=== PATIENT | male | born 1985 | race Caucasian/White ===

== ENCOUNTER 2021-06-18 12:19 | Emergency (ER) | payer BC, SELFPAY ==
[2021-06-18 12:41] VITALS: BP 145/86; PULSE 120; RESP 20; TEMP 36.9; O2SAT 99
--- NOTE | 2021-06-18 13:09 | ED.BACK ---
HPI - Back Pain/Injury General Chief Complaint: Abdominal Pain Stated Complaint: Middle Back pain,Abdominal Pain Time Seen by Provider: 06/18/21 13:09 Source: patient Mode of arrival: ambulatory Limitations: no limitations History of Present Illness HPI Narrative: Ever Flores is a 36 yo male with a PMH of high cholesterol who comes to [facility] with 1 week history of mid back pain that radiates to the abdomen that seems to be worsening, he has no nausea vomiting but states that he cannot move or sit up without assistance describes abdominal pain which is more epigastric bilateral as 4 out of 10 back pain is 9 out of 10. Is tachycardic and somewhat diaphoretic Related Data Allergies Allergy/AdvReac Type Severity Reaction Status Date / Time No Known Allergies Allergy Mild Verified 06/18/21 13:16 Review of Systems Review of Systems: CONSTITUTIONAL: Denies fever, chills, sweats. EYES: Denies visual changes, redness, discharge. ENT: Denies rhinorrhea, congestion, sore throat, otalgia. CARDIOVASCULAR: Denies chest pain, palpitations, edema. RESPIRATORY: Denies dyspnea, wheezing, cough GASTROINTESTINAL: Denies abdominal pain, nausea, vomiting, diarrhea. GENITOURINARY: Denies dysuria, hematuria, abnormal discharge SKIN: Denies rash or itching. NEUROLOGIC: Denies numbness, or focal weakness. PSYCHIATRIC: Denies anxiety or depression. Bilateral abdominal pain that is 4 of 10 and back pain is 9 out of 10 in his mid thoracic PMFSH Past Medical History Medical History Mixed hyperlipidemia Surgical History Surgical History H/O removal of cyst (~2004) History of cholecystectomy (~2013) Family History Family History Grandparent Diabetes mellitus Father Family history of sleep apnea Other No family history of malignant neoplasm Social History Social History Alcohol intake: current Comments At time of signature, I agree with nursing past medical, surgical, social and family history. There is no relevant family history pertinent to the presenting complaint. Exam Narrative: GENERAL: This is a well-nourished, well-developed patient, in moderate distress. Mild diaphoresis HEAD: normocephalic, atraumatic. EYES: Sclera clear/white. Vision is grossly intact. EARS: External ears normal, auditory canals clear and without drainage, TMs normal without perforation. Hearing grossly intact. NOSE: External nose normal without nasal discharge, nares without redness, no rhinorrhea. THROAT: Mucous membranes moist, NECK: Neck supple, non-tender CARDIOVASCULAR: Tachycardic r rate and rhythm without murmurs, gallops, or rubs. RESPIRATORY: Clear to auscultation. Breath sounds equal bilaterally. No wheezes, rales, or rhonchi. GASTROINTESTINAL: Abdomen soft, -tender, SKIN: warm, intact with no suspicious lesions or rash, good texture and turgor. NEURO: awake, alert, and oriented to person, place and time. There were no obvious focal neurologic abnormalities. Steady gait EXTREMITIES: Normal range of motion. BACK: Nontender without deformity Course Course Emergency Course: Patient comes to with complaints of abdominal and back pain for the last week that is not improving his back pain is 9 of 10 and he is tachycardic Discussion and decision he needs blood work sent to [facility] for further evaluation Vital Signs Vital signs: Vital Signs Temperature 98.5 F 06/18/21 12:41 Pulse Rate 120 H 06/18/21 12:41 Respiratory Rate 20 06/18/21 12:41 Blood Pressure 145/86 H 06/18/21 12:41 Pulse Oximetry 99 06/18/21 12:41 Temperature 98.5 F 06/18/21 12:41 Pulse Rate 120 H 06/18/21 12:41 Respiratory Rate 20 06/18/21 12:41 Blood Pressure 145/86 H 06/18/21 12:41 Pulse Oximetry 99 06/18/21 12:41
== END 2021-06-18 13:26 | disposition short-term general hospital (02) ==
PROVIDERS: Emergency Provider Nurse Practitioner; PCP Family Medicine
DX: M54.6 Pain in thoracic spine (principal); E78.2 Mixed hyperlipidemia
CPT/HCPCS: 99211; G0463

== ENCOUNTER 2021-06-18 13:50 | Emergency (ER) | payer BC, SELFPAY ==
--- NOTE | ~2021-06-18 | CT_ITS ---
EXAMINATION: CT abdomen pelvis w con DATE: 06/18/2021 15:59 INDICATION: Abdominal pain. Left flank pain. TECHNIQUE: Computed tomography (CT) of the abdomen and pelvis was performed with 100 mL Omnipaque-350 intravenous contrast. Automated exposure control and iterative reconstruction technique were employe d. The dose-length product was 1420.69 mGy-cm. COMPARISON: None FINDINGS: Minimal dependent atelectasis in the bilateral lower lobes. Heart size is normal. No pericardial or p leural effusion. Small sliding-type hiatal hernia. Status post cholecystectomy. Liver, spleen, pancre as, bilateral adrenal glands and kidneys are normal. Bowels including the appendix are normal. Bladde r is normal. No free intraperitoneal gas or fluid. No pathologically enlarged abdominal or pelvic lym phadenopathy. Mild thoracolumbar spondylosis. IMPRESSION: 1. No acute intra-abdominal/pelvic process. Reviewed, dictated and finalized at location A.
--- NOTE | ~2021-06-18 | CT_ITS ---
EXAMINATION: CT thoracic lumbar wo con DATE: 06/18/2021 16:00 INDICATION: Left flank and low back pain TECHNIQUE: High resolution computed tomography (CT) of the thoracic and lumbar spine was performed wi thout intravenous contrast. Additional sagittal and coronal reconstructions were performed. Automated exposure control and iterative reconstruction technique were employed. The dose-length product was 1 420.69 mGy-cm. COMPARISON: None FINDINGS: Normal alignment of the thoracic and lumbar spine. Minimal likely physiologic anterior wedging at L1 and L2. Remaining thoracic and lumbar vertebral body heights are normal. There are few scattered smal l Schmorl's nodes. No fracture. Multilevel mild disc height loss throughout the thoracic spine and at L1-L2 with mild lower thoracic predominant degenerative endplate changes. There is a moderate-sized central disc extrusion at T7-T8 with disc material extending minimally cephalad and caudal to the lev el of the endplates and resulting in mild central canal stenosis. Multilevel mild disc bulges from L1 -L2 through L5-S1 result in only minimal central canal stenosis. Multilevel mild facet osteoarthritis throughout the thoracic and lumbar spine. No significant neural foraminal stenosis. Paravertebral so ft tissues are unremarkable. Groundglass opacities in the lungs related to expiratory phase of imagin g. IMPRESSION: 1. Mild thoracic and lumbar spondylosis is most notable for a small central disc extrusion at T7-T8 r esulting in mild central canal stenosis at this level. Reviewed, dictated and finalized at location A. IMPRESSION: 1. Mild thoracic and lumbar spondylosis is most notable for a small central dis c extrusion at T7-T8 resulting in mild central canal stenosis at this level.
[2021-06-18 13:53] VITALS: BP 164/98; PULSE 125; RESP 16; TEMP 36.2; O2SAT 99
[2021-06-18 14:40] LABS: Basophils Absolute Auto 0.1 K/mm3 (0.0-0.1); Basophils Percent Auto 0.6 % (0.2-1.2); Eosinophils Absolute Auto 0.2 K/mm3 (0-0.3); Eosinophils Percent Auto 1.7 % (0-4.4); Hematocrit 44.8 % (42.0-52.0); Hemoglobin 15.4 g/dL (14.0-18.0); Immature Granulocyte Absolute 0.04 K/mm3 (0.00-0.031); Immature Granulocyte Percent A 0.4 % (0-0.5); Lymphocytes Absolute Auto 3.18 K/mm3 (0.9-3.2); Mean Corpuscular HGB Conc 34.4 g/dl (32-36); Mean Corpuscular Hemoglobin 30.4 pg (26-34); Mean Corpuscular Volume 88.4 fl (80-100); Mean Platelet Volume 10.5 fl (7.4-10.4); Monocytes Absolute Auto 0.9 K/mm3 (0.1-0.6); Monocytes Percent Auto 8.2 % (2.6-8.5); Neutrophils Absolute Auto 6.3 K/mm3 (1.3-6.7); Neutrophils Percent Auto 59.1 % (45.5-73.1); Platelet Count Result 295 k/mm3 (150-375); Red Blood Count 5.07 M/mm3 (4.6-6.20); Red Cell Distribution Width 13.1 % (11.5-14.5); White Blood Count 10.6 K/mm3 (4.5-10.0)
[2021-06-18 14:43] LABS: Add Urine Microscopic? YES; Appearance Urine Cloudy (Clear); Bacteria Urine Trace /hpf; Bilirubin Urine Negative (Negative); Blood Urine Negative (Negative); Color Urine Yellow (Yellow); Glucose Urine UA Negative (Negative); Ketones Urine Negative (Negative); Leukocyte Esterase Ur Negative LEU/UL (Negative); Mucus Urine Few /lpf; Nitrate Urine Negative (Negative); Protein Urine 2+ mg/dL (Negative); RBC Urine 0-2 /hpf (0-2); Urobilinogen Urine Negative mg/dL (<2.0); WBC Urine 0-3 /hpf
--- NOTE | 2021-06-18 14:48 | ED.BACK ---
HPI - Back Pain/Injury General Chief Complaint: Back Pain/Injury Stated Complaint: back pain Time Seen by Provider: 06/18/21 14:47 Source: patient Mode of arrival: ambulatory Limitations: no limitations History of Present Illness HPI Narrative: Patient is a 36 yo male presenting with atraumatic left sided back pain. Pain is located in the mid back. Pain is moderate to severe in nature. He has taken ibuprofen with some improvement in his pain. Patient has taken Tylenol today as well as topical aleve and icy hot. Pt also reports a dull abdominal pain that feels as if it is wrapped around his upper abdomen. He denies diarrhea, nausea, vomiting or constipation. No saddle anesthesia. No urinary incontinence. He has been ambulatory. He denies any injury. No heavy bending or lifting. Related Data Allergies Allergy/AdvReac Type Severity Reaction Status Date / Time No Known Allergies Allergy Mild Verified 06/18/21 14:40 Review of Systems Review of Systems: CONSTITUTIONAL: Denies fever, chills, or sweats. EYES: Denies visual changes, redness, or discharge. ENT: Denies rhinorrhea, congestion, sore throat, or otalgia. CARDIOVASCULAR: Denies chest pain, palpitations, or edema. RESPIRATORY: Denies cough or dyspnea. GASTROINTESTINAL: Frontal abdominal pain, mid back pain, denies diarrhea or constipation GENITOURINARY: Denies dysuria or hematuria. SKIN: Denies rash or itching. MUSCULOSKELETAL: Reports back pain of the mid back denies other joint pain, or myalgia. NEUROLOGIC: Denies headache, numbness, or weakness. [facility] Past Medical History Medical History Mixed hyperlipidemia Surgical History Surgical History H/O removal of cyst (~2004) History of cholecystectomy (~2013) Family History Family History Grandparent Diabetes mellitus Father Family history of sleep apnea Other No family history of malignant neoplasm Social History Social History Alcohol intake: current Exam Narrative: GENERAL: Awake, alert, conversant HEAD: Normocephalic, atraumatic. EYES: PERRLA and EOMI. ENT: Nares clear, no rhinorrhea or epistaxis. Mucous membranes moist. NECK: Supple. CHEST: No respiratory distress, breathing even and non labored HEART: Regular rate, sinus rhythm Thorax: No midline thoracic or lumbar tenderness, tender to paraspinal muscles left thoracic spine ABDOMEN:Non distended, non tender EXTREMITIES: Normal range of motion. No edema. SKIN: Warm, dry, no rash. NEURO:No focal deficits. Alert and oriented x3 Course Vital Signs Vital signs: Vital Signs Temperature 36.2 C L 06/18/21 13:53 Pulse Rate 125 H 06/18/21 13:53 Respiratory Rate 16 06/18/21 13:53 Blood Pressure 164/98 H 06/18/21 13:53 Pulse Oximetry 99 06/18/21 13:53 Temperature 36.2 C L 06/18/21 13:53 Pulse Rate 125 H 06/18/21 13:53 Respiratory Rate 16 06/18/21 13:53 Blood Pressure 164/98 H 06/18/21 13:53 Pulse Oximetry 99 06/18/21 13:53 MDM - Back Pain/Injury MDM Narrative Medical decision making narrative: Given History and Exam the patient appears to be at low risk for Spinal Cord Compression Syndrome, Vertebral Malignancy/Mets, acute Spinal Fracture, Vertebral Osteomyelitis, Epidural Abscess, Infected or Obstructing Kidney Stone. Patient is ambulatory, no infectious type symptoms. Normal neurological exam. Patient is endorsing some bandlike abdominal pain, but not reproducible on exam. He does have left mid thoracic back pain which is reproducible on exam. Their presentation appears most likely to be secondary to non-emergent musculoskeletal etiology vs non-emergent disc herniation. Pain is reproducible, and patient has no other high risk factors such as history of malignancy, weight loss, infectious symptoms.
[2021-06-18 14:51] LABS: Specific Grav Ur 1.031 (1.001-1.035)
[2021-06-18 15:01] LABS: Alanine Aminotransferase 37 U/L (4-50); Albumin Level 4.9 g/dL (3.5-5.1); Alkaline Phosphatase 55 U/L (38-126); Anion Gap 11 mmol/L (8-16); Aspartate Amino Transferase 27 U/L (17-59); Bilirubin,Total 0.9 mg/dL (0.2-1.3); Blood Urea Nitrogen 12 mg/dL (9-20); Calcium 9.7 mg/dL (8.4-10.2); Carbon Dioxide 27 mmol/L (22-30); Chloride 103 mmol/L (98-107); Estimated CRCL calculation 123 ml/min; Estimated Glomerular Filt Rate > 60; Glucose 106 mg/dL (65-110); Lipase 61 U/L (23-300); Sodium 141 mmol/L (137-145)
[2021-06-18] MEDS: SODIUM CHLORIDE 0.9% IV 1,000 ML 999 ML IV CONT (16:02)
[2021-06-18] MEDS: MORPHINE SULFATE (*CRX) 4 MG/ML INJ IV PUSH (16:03)
[2021-06-18 16:57] VITALS: BP 141/86; PULSE 90; RESP 16; TEMP 37.1; O2SAT 100
== END 2021-06-18 16:58 | disposition home or self-care (01) ==
PROVIDERS: Emergency Provider Emergency Medicine; PCP Family Medicine
DX: M48.04 Spinal stenosis, thoracic region (principal); E78.5 Hyperlipidemia, unspecified
CPT/HCPCS: 36415; 72128; 72131; 74177; 80053; 81001; 83690; 85025; 96361; 96374; 99284; J2270; J7030; Q9967

== ENCOUNTER 2023-10-27 13:07 | Emergency (ER) | payer BC, SELFPAY ==
[2023-10-27] VITALS (7 sets, daily range): BP systolic 145–160; BP diastolic 67–98; PULSE 98–127; RESP 12–24; TEMP 36.6; O2SAT 97–99
--- NOTE | ~2023-10-27 | XR_ITS ---
EXAMINATION: XR chest 2V DATE: 10/27/2023 13:39 INDICATION: Chest pain. TECHNIQUE: Frontal and lateral views of the chest were obtained. COMPARISON: CT abdomen and pelvis 06/18/2021 FINDINGS: There is no pneumonia, pleural effusion, or pneumothorax. The heart size is normal. IMPRESSION: 1. No acute cardiopulmonary disease. Reviewed, dictated and finalized at location A. [employer]
--- NOTE | ~2023-10-27 | CT_ITS ---
EXAMINATION: CTA chest PE protocol DATE: 10/27/2023 14:54 INDICATION: Chest pain. Tachycardia. Elevated d-dimer. TECHNIQUE: Computed tomography (CT) pulmonary angiogram of the chest was performed with 100 mL Omnipa que-350 intravenous contrast. Additional 3D reconstructions utilizing coronal maximum intensity proje ction (MIP) were performed. Automated exposure control and iterative reconstruction technique were em ployed. The dose-length product was 924.51 mGy-cm. COMPARISON: None FINDINGS: No pulmonary embolism. Mosaic attenuation in the dependent lungs with mild groundglass opacities like ly representing dependent atelectasis with several small subsegmental regions of more lucent peripher al subsegmental air trapping. No pneumonia, pulmonary edema, pleural effusion or pneumothorax. Heart size is normal. No pericardial effusion. Thoracic aorta is normal in caliber with no dissection. No p athologically enlarged thoracic lymphadenopathy. Small sliding-type hiatal hernia. Mild thoracic spon dylosis. IMPRESSION: 1. Mild dependent atelectasis in both lungs with peripheral subsegmental regions of more lucent air t rapping which could be seen with small airway disease. No pulmonary embolism or other acute cardiopul monary disease. 2. Small sliding-type hiatal hernia. Reviewed, dictated and finalized at location B. [employer]IC IMPRESSION: 1. Mild dependent atelectasis in both lungs with peripheral subsegmental region s of more lucent air trapping which could be seen with small airway disease. No pulmonary embolism or other acute cardiopulmonary disease. 2. Small sliding-type hiatal hernia.
--- NOTE | 2023-10-27 13:09 | ECG_ITS ---
Measurements Intervals [place] Rate: 118 P: 17 SC: 156 QRS: 51 QRSD: 91 T: 22 QT: 320 QTc: 448 Interpretive Statements SINUS TACHYCARDIA ABNORMAL RHYTHM ECG NO PREVIOUS ECG AVAILABLE FOR COMPARISON Electronically Signed On 10-27-2023 19:18:12 [employer] by Dilma Oliveira M.D.
[2023-10-27] MEDS: ASPIRIN 81 MG CHEWABLE TABLET 324 MG PO (13:19)
[2023-10-27 13:45] LABS: Basophils Absolute Auto 0.1 K/mm3 (0.0-0.1); Basophils Percent Auto 0.6 % (0.2-1.2); Eosinophils Absolute Auto 0.2 K/mm3 (0-0.3); Hematocrit 47.2 % (42.0-52.0); Hemoglobin 15.6 g/dL (14.0-18.0); Immature Granulocyte Absolute 0.02 K/mm3 (0.00-0.031); Immature Granulocyte Percent A 0.2 % (0-0.5); Lymphocytes Absolute Auto 2.85 K/mm3 (0.9-3.2); Lymphocytes Percent Auto 35.1 % (18.3-44.2); Mean Corpuscular HGB Conc 33.1 g/dl (32-36); Mean Corpuscular Hemoglobin 29.2 pg (26-34); Mean Corpuscular Volume 88.2 fl (80-100); Mean Platelet Volume 11.1 fl (7.4-10.4); Monocytes Absolute Auto 0.6 K/mm3 (0.1-0.6); Monocytes Percent Auto 7.1 % (2.6-8.5); Neutrophils Absolute Auto 4.5 K/mm3 (1.3-6.7); Platelet Count Result 287 k/mm3 (150-375); Red Blood Count 5.35 M/mm3 (4.6-6.20); Red Cell Distribution Width 13.2 % (11.5-14.5); White Blood Count 8.1 K/mm3 (4.5-10.0)
[2023-10-27 13:47] LABS: Alanine Aminotransferase 26 U/L (6-50); Albumin Level 4.7 g/dL (3.5-5.1); Alkaline Phosphatase 57 U/L (38-126); Anion Gap 8 mmol/L (8-16); Aspartate Amino Transferase 24 U/L (17-59); Bilirubin,Total 1.1 mg/dL (0.2-1.3); Blood Urea Nitrogen 14 mg/dL (9-20); Calcium 9.3 mg/dL (8.4-10.2); Carbon Dioxide 29 mmol/L (22-30); Chloride 102 mmol/L (98-107); Estimated Glomerular Filt Rate > 60; Glucose 149 mg/dL (65-110); Lipase 82 U/L (23-300); Potassium 3.9 mmol/L (3.4-5.0); Sodium 139 mmol/L (137-145)
--- NOTE | 2023-10-27 13:53 | ED.CHESTPAIN ---
HPI - Chest Pain General Chief Complaint: Chest Pain Stated Complaint: chest pain Time Seen by Provider: 10/27/23 13:13 History of Present Illness HPI narrative: 38-year-old male with a known history of sinus tachycardia, GERD, hyperlipidemia, hypertension, s/p cholecystectomy reports for evaluation for substernal chest pain that started last night. Patient states he was in his recliner when he notice chest pain that is located in his sternum. States it feels like a pressure and is nonradiating. Reports it feels worse with movement. Denies dyspnea, cough or congestion, fever, shortness of breath, associated nausea or vomiting, diaphoresis. Denies prior cardiac history personally or for his family. Denies lower extremity edema, history of VTE, hemoptysis, recent surgeries or hospitalizations, smoking. Denies recent injury or trauma to his chest. States he is mildly anxious because he is concerned about his chest pain. States his pain does not feel like GERD. Related Data Home Medications Medication Instructions Recorded Confirmed famotidine 20 mg tablet (Pepcid) 20 mg PO HS 10/27/23 10/27/23 Allergies Allergy/AdvReac Type Severity Reaction Status Date / Time No Known Allergies Allergy Mild Verified 10/27/23 13:19 Review of Systems Review of Systems: CONSTITUTIONAL: Denies fever, chills, or sweats. EYES: Denies visual changes, redness, or discharge. ENT: Denies rhinorrhea, congestion, sore throat, or otalgia. CARDIOVASCULAR: See HPI RESPIRATORY: Denies cough or dyspnea. GASTROINTESTINAL: Denies abdominal pain, nausea, vomiting, or diarrhea. GENITOURINARY: Denies dysuria or hematuria. SKIN: Denies rash or itching. MUSCULOSKELETAL: Denies back pain, joint pain, or myalgia. NEUROLOGIC: Denies headache, numbness, or weakness. PSYCHIATRIC: Denies anxiety or depression. [facility] Past Medical History Medical History Elevated blood pressure reading in office with diagnosis of hypertension Mixed hyperlipidemia Surgical History Surgical History H/O removal of cyst (~2004) History of cholecystectomy (~2013) Family History Family History Grandparent Diabetes mellitus Father Family history of sleep apnea Other No family history of malignant neoplasm Social History Social History Smoking status: Never smoker Second hand tobacco smoke exposure: No Alcohol intake: current Alcohol use details: Only reports drinking once per month for the most part. Substance use: never Substance use type: does not use Lack of Transportation: No Lack of Food: Never True Current Housing: I Have Housing Concerned About Future Housing: No Difficulty Paying Gas/Electric Bills: No Difficulty Paying for Meds: No Currently Unemployed: No Education: Associate Degree Difficulty w/ Childcare or Family Care: No Living arrangements: with family Occupation/Education: occupation Gender identity (if verbalized by the patient): Male Exam Narrative: GENERAL: Well-appearing, well-nourished, and in no acute distress. Patient resting comfortably in exam bed. He is pleasant and conversational. HEAD: Normocephalic, atraumatic. EYES: PERRLA and EOMI. ENT: Nares clear, no rhinorrhea or epistaxis. Mucous membranes moist. NECK: Supple. CHEST: Clear to auscultation. No respiratory distress. Mild tenderness to the sternum and to the costosternal joints bilaterally HEART: Tachycardic with regular rhythm. No murmur heard. Normal peripheral pulses. ABDOMEN: Soft, nontender, nondistended, normal active bowel sounds. EXTREMITIES: Normal range of motion. No edema. SKIN: Warm, dry, no rash. NEURO: No focal deficits. Alert and oriented x3 Course Vital Signs Vital signs: Vital Signs
[2023-10-27 13:58] LABS: Troponin I < 0.012 ng/mL (0.000-0.034)
[2023-10-27] MEDS: SODIUM CHLORIDE 0.9% IV 1,000 ML 999 ML IV CONT ×2 (14:01→17:03)
[2023-10-27] MEDS: LORazepam INJ (*CRX) 2 MG/ML VIAL 1 MG IV PUSH (14:01)
[2023-10-27 14:04] LABS: INR 0.9; Partial Thromboplastin Time 26.9 SECONDS (22.3-36.8); Prothrombin Time 12.8 Seconds (11.1-14.7)
[2023-10-27 14:23] LABS: NT Pro B Type Natriuretic Pept < 20 pg/mL (19.9-100)
[2023-10-27 14:32] LABS: D Dimer 0.97 ug/mL (<0.48)
--- NOTE | 2023-10-27 16:26 | ECG_ITS ---
Measurements Intervals [place] Rate: 104 P: 26 MO: 156 QRS: 48 QRSD: 96 T: 26 QT: 306 QTc: 403 Interpretive Statements SINUS TACHYCARDIA COMPARED TO ECG 10/27/2023 13:19:49 NO SIGNIFICANT CHANGES Electronically Signed On 10-28-2023 15:27:17 [employer] by Cj Guerrero M.D.
[2023-10-27 16:46] LABS: Troponin I < 0.012 ng/mL (0.000-0.034)
[2023-10-27] MEDS: ACETAMINOPHEN 500 MG TABLET 1000 MG PO (17:03)
== END 2023-10-27 17:36 | disposition home or self-care (01) ==
PROVIDERS: Emergency Medicine; Emergency Provider Physician Assistant; PCP Emergency Medicine
DX: R07.89 Other chest pain (principal); M94.0 Chondrocostal junction syndrome [Tietze]; I10 Essential (primary) hypertension; E78.2 Mixed hyperlipidemia; K21.9 Gastro-esophageal reflux disease without esophagitis; R00.0 Tachycardia, unspecified; Z90.49 Acquired absence of other specified parts of digestive tract; K44.9 Diaphragmatic hernia without obstruction or gangrene
CPT/HCPCS: 36415; 71046; 71275; 80053; 83690; 83880; 84484; 85025; 85380; 85610; 85730; 93005; 96361; 96374; 99284; A9270; J2060; J7030; Q9967